=== PATIENT | male | born 1945 | race Caucasian/White ===

== ENCOUNTER → 2016-05-01 | Outpatient (REF) | payer OTHER, MEDICARE ==
[~2016-05-01] MED LIST: ASPI324T PO; DONETAB6 PO; GLYB5TA PO; LANTINJ4 SC; LISI-538 PO; METF500T PO; METO25TAB PO; NAME28CA PO; PARO20TA2 PO; SIMV10TA2 PO; TAMS0.4C2 PO; VITA-115 PO; VITA-130 PO; XANA1TAB2 PO
== END ==
LOC: M SMT 13:00
PROVIDERS: ATTEND Urology
DX: Z85.51 Personal history of malignant neoplasm of bladder (principal)

== ENCOUNTER → 2016-10-23 | Outpatient (CLI) | payer OTHER, MEDICARE ==
[~2016-10-23] MED LIST changes: -METF500T PO; +METF500T13 PO; -PARO20TA2 PO; +PARO20TA3 PO; -VITA-130 PO; +VITA500T PO
--- NOTE | 2016-10-23 09:20 | REP ---
LOW-DOSE LUNG CANCER SCREENING CHEST CT WITHOUT CONTRAST: HISTORY: Tobacco use. Comparison chest x-ray September 27, 2014. 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 There is no visible pulmonary nodule or mass lesion. Vascular calcification is noted. IMPRESSION: Negative low-dose lung cancer screening chest CT. Signed by Scott De Santiago MD 10/23/2016 09:56 A
== END ==
LOC: M RAD 08:03
PROVIDERS: ATTEND Family Medicine
DX: Z12.2 Encounter for screening for malignant neoplasm of respiratory organs (principal); J44.9 Chronic obstructive pulmonary disease, unspecified; Z72.0 Tobacco use

== ENCOUNTER → 2016-10-23 | Outpatient (CLI) | payer OTHER, MEDICARE ==
--- NOTE | 2016-10-23 09:57 | REP ---
CAROTID ULTRASOUND: Real-time ultrasound evaluation and duplex Doppler interrogation of the extracranial carotid vasculature is performed. There is mild to moderate plaquing and narrowing in both carotid bulbs extending into the internal and external carotid arteries. Luminal narrowing is less than 50%. There is no evidence of hemodynamically significant stenosis of either internal carotid artery. Normal flow velocities are seen. The vertebral arteries demonstrate normal direction of flow. RIGHT LEFT Peak systolic velocity ICA 59.9 cm/s 66.5 cm/s End diastolic velocity ICA 18 cm/s 16.5 cm/s Peak systolic velocity CCA 66.3 cm/s 71.8 cm/s Peak systolic velocity ECA 183.9 cm/s 130.9 cm/s ICA/CCA ratio 0.9 0.93 IMPRESSION: Bilateral luminal narrowing of the internal carotid arteries less than 50%. No evidence of hemodynamically significant stenosis. Signed by Mark Díaz MD 10/23/2016 09:47 A
--- NOTE | 2016-10-23 10:27 | REP ---
MR BRAIN WITHOUT CONTRAST: HISTORY: Dementia. COMPARISON: 10/14/2014 Areas of increased signal intensity and T2-weighted images are present in the basal ganglia. These represents old lacunar infarctions. Punctate and confluent areas of increased signal intensity no T2-weighted images are present in the periventricular and subcortical white matter. This represents small vessel ischemic disease. There is no intraparenchymal hemorrhage, acute infarct mass or midline shift. The ventricular system and cortical sulci are dilated consistent with mild volume loss. There is no extracerebral collection. The sinuses are clear. IMPRESSION: 1. Old bilateral basal ganglia lacunar infarctions. 2. Small vessel ischemic disease. 3. Mild volume loss. Signed by Geo Major MD 10/23/2016 11:29 A
== END ==
LOC: M RAD 08:17
PROVIDERS: ATTEND Physician Assistant Medical
DX: I63.8 Other cerebral infarction (principal); F02.80 Dementia in other diseases classified elsewhere, unspecified severity, without behavioral disturbance, psychotic disturbance, mood disturbance, and anxiety; I65.23 Occlusion and stenosis of bilateral carotid arteries

== ENCOUNTER → 2016-11-20 | Outpatient (REF) | payer OTHER, MEDICARE | LOC: M SMT 17:05 | PROVIDERS: ATTEND Urology | DX: Z85.51 Personal history of malignant neoplasm of bladder (principal) ==

== ENCOUNTER → 2018-02-04 | Outpatient (REF) | payer BC | LOC: M SMT 13:02 | DX: Z85.51 Personal history of malignant neoplasm of bladder (principal) ==

== ENCOUNTER → 2019-02-16 | Outpatient (REF) | payer BC, MEDICARE ==
[~2019-02-16] MED LIST changes: +GLYB-147 PO; -GLYB5TA PO; +METO1TAB63 PO; -METO25TAB PO; -SIMV10TA2 PO; +SIMV10TA21 PO
== END ==
LOC: M SMT 12:49
PROVIDERS: ATTEND Urology
DX: Z85.51 Personal history of malignant neoplasm of bladder (principal)

== ENCOUNTER → 2019-02-26 | Outpatient (CLI) | payer BC, MEDICARE ==
--- NOTE | 2019-02-26 08:50 | REP ---
CAROTID ULTRASOUND: Real-time ultrasound evaluation and duplex Doppler interrogation of the extracranial carotid vasculature is performed. There is mild to moderate plaquing and narrowing in both carotid bulbs extending into the internal and external carotid arteries. Luminal narrowing is less than 50%. There is no evidence of hemodynamically significant stenosis of either internal carotid artery. Normal flow velocities are seen. The vertebral arteries demonstrate normal direction of flow. RIGHT LEFT Peak systolic velocity ICA 81.1 cm/s 82.4 cm/s End diastolic velocity ICA 15.7 cm/s 14.7 cm/s Peak systolic velocity CCA 80.2 cm/s 89.5 cm/s Peak systolic velocity ECA 252.2 cm/s 149.2 cm/s ICA/CCA ratio 1.0 0.92 IMPRESSION: Bilateral luminal narrowing of the internal carotid arteries less than 50%. No evidence of hemodynamically significant stenosis. Electronically Signed by Mark Díaz MD 02/26/2019 08:42 A
== END ==
LOC: M RAD 07:51
PROVIDERS: ATTEND Physician Assistant
DX: I10 Essential (primary) hypertension (principal); F02.80 Dementia in other diseases classified elsewhere, unspecified severity, without behavioral disturbance, psychotic disturbance, mood disturbance, and anxiety